=== PATIENT | male | born 2000 | race Caucasian/White ===

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

== ENCOUNTER 2019-04-15 22:52 | Emergency (ER) | payer SELFPAY ==
[~2019-04-15] VITALS: Ht 185.4 cm; Wt 114.9 kg
[~2019-04-15 22:52] MED LIST: CEPH-443 PO; IBUP800T48 PO; SLSL1C50 TOP
[2019-04-15 22:56] VITALS: BP 116/68; PULSE 82; RESP 18; Ht 185.4 cm; Wt 114.9 kg
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
[2019-04-16] MEDS ORDERED: HYDROCODONE/APAP (10/325) TAB PO ONE (00:30)
[2019-04-16] MEDS ORDERED: DIPHTH/TET/ACEL PERTUSS (ADULT) 0.5 ML VIAL IM* ONE (00:30)
== END 2019-04-16 02:11 | disposition home or self-care (01) ==
LOC: FTE 22:52
DX: S51.832A Puncture wound without foreign body of left forearm, initial encounter (principal); X99.8XXA Assault by other sharp object, initial encounter; Z23 Encounter for immunization
CPT/HCPCS: 73090; 90471; 90715